=== PATIENT | female | born 1975 | race Caucasian/White ===

== ENCOUNTER 2017-12-11 14:20 | Emergency (ER) | payer OTHER ==
[~2017-12-11 14:20] MED LIST: PEPCID 20MG TAB20 MG PO; ZOFRAN4 M1 PO
--- NOTE | 2017-12-11 14:28 | ED GENERAL ADULT ---
See Addendum History of Present Illness General Chief Complaint: Syncope and Near-Syncope Stated Complaint: BIBA NEAR SYNCOPE Source: patient Exam Limitations: no limitations Vital Signs & Intake/Output Vital Signs & Intake/Output Vital Signs Date Time Temp Pulse Resp B/P B/P Pulse O2 O2 Flow FiO2 Mean Ox Delivery Rate 12/11 1932 98.3 83 18 111/73 98 Room Air 12/11 1721 98.2 79 18 121/79 98 Room Air 12/11 1444 130/80 12/11 1433 98.0 88 18 140/90 98 Room Air Allergies Coded Allergies: NO KNOWN ALLERGIES (04/28/12) NKA PER ANTIBIOTIC ORDER SHEET - SJS Reconcile Medications Famotidine (Pepcid 20MG Tab) 20 MG TAB 1 TAB PO DAILY PEPTIC ULCER Ondansetron (Zofran Odt) 4 MG ODT 1 TAB PO Q6HR PRN NAUSEA Triage Note: BIBA FROM DENTIST'S OFFICE FOR SENSATION OF NEAR SYNCOPE/LIGHTHEADEDNESS WITH BRIEF PERIOD OF CHEST PRESSURE THAT RESOLVED ON ITS OWN APPLICATIONS PACKAGER. RECEIVED 325 ASA APPLICATIONS PACKAGER. REPORTS LAST NIGHT SHE WAS FEELING DIZZY, WORSE WITH LIGHTS OFF. TODAY'S EPISODE OF DIZZINESS OCCURRED WHEN DENTIST LAYED THE CHAIR BACK. ALSO REPORTS LAST NIGHT SHE FELT THAT SHE WAS HAVING TROUBLE ARTICULATING HER THOUGHTS WITH DELAYED COGNITION/MILD CONFUSION. ACCUCHECK 81. HX OF VERTIGO Triage Nurses Notes Reviewed? yes Onset: Abrupt Duration: hour(s): Timing: recent history HPI: 12/06/17 3 PM 42-year-old female presents to the emergency department for severe vertigo. The patient states that this morning she had several episodes of feeling lightheaded and severe dizziness and unsteady gait when moving. She also had an episode of epigastric discomfort. She has a past medical history of vertigo. She has a past surgical history of " tympanic membrane perforation repair" surgical history is otherwise noncontributory. (Obdulio Rebollar DO) Past History Travel History Traveled to [place] past 21 day No Medical History Any Pertinent Medical History? see below for history Neurological: TRIGEMINAL NEURALGIA EENT: NONE Cardiovascular: NONE Respiratory: NONE Gastrointestinal: NONE Hepatic: NONE Renal: NONE Musculoskeletal: NONE Psychiatric: NONE Endocrine: NONE Blood Disorders: HEMOPHILIA CARRIER Cancer(s): NONE ADULT PAROLE OFFICER/Reproductive: NONE Surgical History Surgical History: FOOT, ENDOMETRIOSIS, EAR Psychosocial History What is your primary language Haitian Family History Hx Contributory? No (Obdulio Rebollar DO) Review of Systems Review of Systems Constitutional: Denies: fever. EENTM: Denies: visual changes. Respiratory: Denies: short of breath. Cardiovascular: Reports: see HPI. GI: Denies: abdominal pain. Genitourinary: Reports: no symptoms. Musculoskeletal: Reports: no symptoms. Skin: Reports: no symptoms. Neurological/Psychological: Reports: see HPI. Hematologic/Endocrine: Reports: no symptoms. Immunologic/Allergic: Reports: no symptoms. (Obdulio Rebollar DO) Physical Exam Physical Exam General Appearance: well developed/nourished, alert, awake, anxious, mild distress Head: atraumatic, normal appearance Eyes: Bilateral: normal appearance, PERRL, EOMI ( + NYSTAGMUS). Ears, Nose, Throat: normal pharynx, normal ENT inspection Neck: normal inspection, supple, full range of motion Respiratory: normal breath sounds, chest non-tender, no respiratory distress Cardiovascular: regular rate/rhythm Peripheral Pulses: 4+ radial (R), 4+ radial (L) Gastrointestinal: soft, non-tender Extremities: no edema Neurologic/Psych: no motor/sensory deficits, awake, alert, oriented x 3 Skin: intact, normal color, warm/dry Core Measures ACS in differential dx? No CVA/TIA Diagnosis: No Sepsis Present: No Sepsis Focused Exam Completed? No (Obdulio Rebollar DO) Progress Differential Diagnoses I considered the following diagnoses in my evaluation of the patient: vertigo, vestibular neuronitis, labyrinthitis, benign positional vertigo, cerebellar TIA, electrolyte derangement, pulmonary embolism, acute coronary syndrome] Plan of Care: Orders Procedure Date/time Status EKG 12/11 1825 Active EKG 12/11 1824 Active TROPONIN LEVEL 12/11 1800 Complete Add-on Test (ER Only) 12/11 1500 Active LYME TITRE 12/11 1445 Active D-DIMER 12/11 1445 Complete TROPONIN LEVEL 12/11 1442 Complete HUMAN BETA HCG SCREEN 12/11 1442 Complete COMPREHENSIVE METABOLIC PANEL 12/11 1442 Complete CBC WITHOUT DIFFERENTIAL 12/11 1442 Complete EKG 12/11 1427 Active Laboratory Tests 12/11/17 1817: Troponin I < 0.01 12/11/17 1445: Anion Gap 8, Estimated GFR > 60, BUN/Creatinine Ratio 12.9, Glucose 86, Calcium 9.4, Total Bilirubin 0.2, AST 19, ALT 25, Alkaline Phosphatase 46, Troponin I < 0.01, Total Protein 5.7 L, Albumin 3.3 L, Globulin 2.4, Albumin/Globulin Ratio 1.4, Total Beta HCG NEGATIVE, D-Dimer High Sensitivty < 200, CBC w Diff NO MAN DIFF REQ, RBC 3.95 L, MCV 90.8, MCH 31.5 H, MCHC 34.8, RDW 12.1, MPV 8.6, Gran % 65.7, Lymphocytes % 27.2, Monocytes % 4.0, Eosinophils % 2.6, Basophils % 0.5, Absolute Granulocytes 5.5, Absolute Lymphocytes 2.3, Absolute Monocytes 0.3, Absolute Eosinophils 0.2, Absolute Basophils 0, Lyme Disease Antibody Pending Initial ED EKG: NSR, nonspecific ST T wave chg Prior EKG: unchanged Comments: Prehospital EKG was reviewed and reveals normal sinus rhythm (Obdulio Rebollar DO) Departure Departure Clinical Impression Primary Impression: Vertigo Referrals: Adan CALVERT,MYessi Webb (PCP/Family) Departure Forms: Customer Survey General Discharge Information Comments 12/06/17 7 PM The patient was signed out to Dr. Burt. Followup repeat troponin. Repeat EKG was unchanged. She should follow-up with her doctor this week. Lipo Flavionoid Plus as directed (Obdulio Rebollar DO) Departure Disposition: HOME OR SELF CARE Condition: Stable (Javed CALVERT,Johny) Critical Care Note Critical Care Note Critical Care Time: non-applicable (Obdulio Rebollar DO)
[2017-12-11 14:57] LABS: ABSOLUTE BASOPHIL COUNT 0 /CUMM (0.0-0.2); ABSOLUTE EOSINOPHIL COUNT 0.2 /CUMM (0.0-0.7); ABSOLUTE GRANULOCYTE CT 5.5 /CUMM (1.4-6.5); ABSOLUTE LYMPH COUNT 2.3 /CUMM (1.2-3.4); ABSOLUTE MONOCYTE COUNT 0.3 /CUMM (0.10-0.60); BASOPHIL % 0.5 % (0.0-2.0); EOSINOPHIL % 2.6 % (0-5); GRANULOCYTE % 65.7 % (42.2-75.2); HEMATOCRIT 35.8 % (37-47); MEAN CORPUSCULAR HGB 31.5 PG (27.0-31.0); MEAN CORPUSCULAR HGB CONC 34.8 G/DL (33.0-37.0); MEAN CORPUSCULAR VOLUME 90.8 FL (81.0-99.0); MEAN PLATELET VOLUME 8.6 FL (7.4-10.4); PLATELET COUNT 376 /CUMM (130-400); RBC DISTRIBUTION WIDTH 12.1 % (11.5-14.5); RED BLOOD CELL CT 3.95 /CUMM (4.20-5.40); WHITE BLOOD CELL COUNT 8.4 /CUMM (4.8-10.8)
--- NOTE | 2017-12-11 15:38 | RADIOLOGY REPORT ---
EXAMINATION: XR CHEST CLINICAL INFORMATION: Near syncope. Dizziness. COMPARISON: None TECHNIQUE: 2 views of the chest were obtained. FINDINGS: No significant abnormality is noted involving the heart, lungs, mediastinum, bony thorax or soft tissues. IMPRESSION: Unremarkable examination.
--- NOTE | 2017-12-11 15:55 | CT SCAN REPORT ---
EXAMINATION: CT HEAD WITHOUT CONTRAST CLINICAL INFORMATION: Severe vertigo COMPARISON: None TECHNIQUE: Contiguous axial imaging was performed from the skull base to vertex without intravenous administration of contrast. DLP: 536.09 mGy-cm FINDINGS: There is no evidence of acute intracranial hemorrhage or territorial infarction. No abnormal mass effect or midline shift is seen. [place] to white matter differentiation is well preserved. No extra-axial fluid collections are identified. The ventricles are normal in size. There is no abnormal attenuation within the brain parenchyma. The osseous structures and soft tissues are normal. The mastoid air cells and visualized portions of the paranasal sinuses are well aerated. IMPRESSION: No acute intracranial pathology.
[2017-12-11 19:32] VITALS: BP 111/73
== END 2017-12-11 19:59 ==
LOC: ERH 14:20
PROVIDERS: Emergency Medicine
DX: R42 Dizziness and giddiness (principal); R10.13 Epigastric pain
CPT/HCPCS: 86618; 71046; 93005; 93010; 96374